=== PATIENT | female | born 1930 | race Hispanic/Latino ===

== ENCOUNTER 2018-05-21 08:29 | Emergency (ER) | payer MEDICARE ==
[2018-05-21 08:55] VITALS: BP 128/77
[2018-05-21] MEDS ORDERED: ATIVAN IM ONE (10:46)
--- NOTE | 2018-05-21 11:06 | Emergency Department Report ---
- General Chief Complaint: Altered Mental Status Stated Complaint: FALL Time Seen by Provider: 05/21/18 10:40 Source: EMS Mode of arrival: Stretcher Limitations: Altered Mental Status - History of Present Illness Initial Comments: Ms. Goldberg has a history of dementia. 87-year-old female. While attempting to elope from the assisted living facility, she has a skin tear left forearm while being handled by staff member. EMS was contacted for evaluation of skin tear. Patient is at baseline mental status. Known history dementia. She is able to answer questions. She is hyper verbal. She denies any concerns or discomfort at this time. - Related Data Allergies Allergy/AdvReac Type Severity Reaction Status Date / Time atorvastatin Allergy Unknown Verified 05/21/18 09:01 ezetimibe [From Vytorin] Allergy Unknown Verified 05/21/18 09:01 metformin Allergy Unknown Verified 05/21/18 09:01 simvastatin [From Vytorin] Allergy Unknown Verified 05/21/18 09:01 ED Review of Systems ROS: Stated complaint: FALL Other details as noted in HPI Comment: Unobtainable due to pts medical conditions (dementia) ED Past Medical Hx - Past Medical History Previous Medical History?: Yes Hx Hypertension: No Hx CVA: Yes Hx Heart Attack/AMI: No Hx Congestive Heart Failure: No Hx Diabetes: No Hx Deep Vein Thrombosis: No Hx Pulmonary Embolism: No Hx GERD: No Hx Liver Disease: No Hx Renal Disease: No Hx of Cancer: No Hx Sickle Cell Disease: No Hx Arthritis: No Hx Headaches / Migraines: No Hx Seizures: No Hx Kidney Stones: No Hx Psychiatric Treatment: No Hx Asthma: No Hx COPD: No Hx Tuberculosis: No Hx Dementia: Yes Hx HIV: No - Surgical History Additional Surgical History: pt unable to communiacte effectively due to altered mental status - Social History Smoking Status: Never Smoker Substance Use Type: None ED Physical Exam - General Limitations: Altered Mental Status General appearance: alert, in no apparent distress, other (resting comfortably but speaks upon several subjects) - Head Head exam: Present: atraumatic, normocephalic - Eye Eye exam: Present: normal appearance - ENT ENT exam: Present: normal orophraynx - Neck Neck exam: Present: normal inspection - Respiratory Respiratory exam: Present: normal lung sounds bilaterally. Absent: respiratory distress - Cardiovascular Cardiovascular Exam: Present: regular rate, normal rhythm - GI/Abdominal GI/Abdominal exam: Present: soft. Absent: distended, tenderness, guarding, rebound - Extremities Exam Extremities exam: Present: normal inspection - Neurological Exam Neurological exam: Present: alert, other (oriented to name only) - Psychiatric Psychiatric exam: Present: other (delusional circular speech, consolable) - Skin Skin exam: Present: other (4 cm semicircular superficial skin tear) ED Course Vital Signs 05/21/18 05/21/18 05/21/18 08:45 08:50 09:32 Temperature 97.4 F L 97.4 F L Pulse Rate 86 86 Respiratory 14 14 Rate Blood Pressure 128/77 Blood Pressure 128/77 [Right] O2 Sat by Pulse 96 96 96 Oximetry ED Medical Decision Making - Medical Decision Making Ms. Goldberg presents with left forearm superficial skin tear. Appropriate wound care provided by nurse. The skin was intact without obvious defect skin defect. I did not provide tetanus booster. This is not a tetanus prone wound. She did receive IM lorazepam for slight agitation in order to assist with transportation. Critical care attestation.: If time is entered above; I have spent that time in minutes in the direct care of this critically ill patient, excluding procedure time. ED Disposition Clinical Impression: Skin tear of left upper extremity Disposition: [id number]/TX-[id number] ANOTHER TYPE HLTHCARE Is pt being admited?: No Does the pt Need Aspirin: No Condition: Stable Instructions: Skin Tear (ED) Time of Disposition: 11:11
== END 2018-05-21 13:15 | disposition other institution (70) ==
LOC: ED 08:29
DX: S51.812A Laceration without foreign body of left forearm, initial encounter (principal); F03.90 Unspecified dementia, unspecified severity, without behavioral disturbance, psychotic disturbance, mood disturbance, and anxiety; Z86.73 Personal history of transient ischemic attack (TIA), and cerebral infarction without residual deficits; Z88.8 Allergy status to other drugs, medicaments and biological substances; W19.XXXA Unspecified fall, initial encounter; Y93.89 Activity, other specified; Y99.8 Other external cause status; Y92.89 Other specified places as the place of occurrence of the external cause
CPT/HCPCS: 99283